=== PATIENT | female | born 1985 | race American Indian/Alaskan Native ===

== ENCOUNTER 2018-05-20 12:17 | Emergency (ER) | payer OTHER ==
[2018-05-20 12:26] VITALS: BP 158/106
--- NOTE | 2018-05-20 12:32 | Emergency Department Report ---
HPI - General Chief Complaint: Allergic Reaction Time Seen by Provider: 05/20/18 12:27 - HPI HPI: 33 yo female presents to ED cc of allergic reaction to flagyl which she took 4 days ago and broke out in hives all over her body and itching. She sates she went to Urgent care 3 days ago and got meds but has had no relief. Patient states that she is in his itching all over her body. She denies sob, cp, difficulty breathing. ED Past Medical Hx - Past Medical History Previous Medical History?: No - Social History Smoking Status: Never Smoker Substance Use Type: None - Medications Home Medications: Home Medications Medication Instructions Recorded Confirmed Last Taken Type Hydrocortisone 0.5% 1 applicatio TP TID #2 tube 05/20/18 Unknown Rx [Hydrocortisone 0.5% CREAM] hydrOXYzine HCL [Atarax] 25 mg PO QHS #20 tablet 05/20/18 Unknown Rx ED Review of Systems ROS: Stated complaint: ALLERGIES Other details as noted in HPI Comment: All other systems reviewed and negative Physical Exam - Physical Exam Vital Signs: Vital Signs 05/20/18 12:23 Temperature 98.2 F Pulse Rate 70 Respiratory 18 Rate Blood Pressure 158/106 O2 Sat by Pulse 98 Oximetry Physical Exam: GENERAL: Alert and oriented x3, no apparent distress, Normal Gait, atraumatic. HEAD: Head is normocephalic and a-traumatic. MOUTH:Mouth is well hydrated and without lesions. Tonsils nonerythematous or swollen, Uvula midline, Tongue not elevated. Mucous membranes are moist. Posterior pharynx clear, no exudate or lesions. Patent airways. NECK: Supple. Non edematous, No carotid bruits. No lymphadenopathy or thyromegaly. No C-spine tenderness LUNGS: Symetrical with respiration, No wheezing, no rales or crackles, CTAB. HEART: S1, S2 present, regular rate and rhythm without murmur, no rubs, no gallops. Non tender to palpation EXTREMITIES/MUSCULOSKELETAL: No cyanosis, clubbing, rash, lesions or edema. SKIN: Warm and dry, generalized hives on face and arms No lesions, No ulceration or induration present. ED Course Vital Signs 05/20/18 12:23 Temperature 98.2 F Pulse Rate 70 Respiratory 18 Rate Blood Pressure 158/106 O2 Sat by Pulse 98 Oximetry ED Medical Decision Making - Medical Decision Making 33-year-old female presented allergic reaction. Patient received steroids, 1 L of fluids and Pepcid and ED. Patient reports feeling moderately better. She is in no acute or respiratory distress. Discussed follow up with primary care physician. Critical care attestation.: If time is entered above; I have spent that time in minutes in the direct care of this critically ill patient, excluding procedure time. ED Disposition Clinical Impression: Allergic dermatitis, Hives Disposition: TO HOME OR SELFCARE Is pt being admited?: No Does the pt Need Aspirin: No Condition: Stable Instructions: Urticaria (ED) Additional Instructions: F/U WITH PCP/ HYDROTHERAPIST TAKE MEDS pRESECRIBED iF WORSENING OR NEW SYMPTOMS RETURN TO ed Prescriptions: hydrOXYzine HCL [Atarax] 25 mg PO QHS #20 tablet Hydrocortisone 0.5% [Hydrocortisone 0.5% CREAM] 1 applicatio TP TID #2 tube Referrals: VICK HENDRICKS MD [Primary Care Provider] - 3-5 Days MARIA DE JESUS CRANE MD [Staff Physician] - 3-5 Days Forms: Accompanied Note, Work/School Release Form(ED) Time of Disposition: 14:44
[2018-05-20] MEDS ORDERED: PEPCID IV ONE (12:35)
[2018-05-20] MEDS ORDERED: BENADRYL IV ONE (12:35)
[2018-05-20] MEDS ORDERED: NACL 0.9% 1000 ML 1,000 ML IV ONE (12:35)
[2018-05-20] MEDS ORDERED: DECADRON IM ONE (14:46)
== END 2018-05-20 15:04 | disposition home or self-care (01) ==
LOC: ED 12:17
DX: L23.9 Allergic contact dermatitis, unspecified cause (principal); L50.9 Urticaria, unspecified; Y92.89 Other specified places as the place of occurrence of the external cause
CPT/HCPCS: 96372; 96374; 96375; 99282; J1100; J1200; J7030